=== PATIENT | male | born 1965 | race Caucasian/White ===

== ENCOUNTER 2017-09-01 20:22 | Emergency (ER) | payer OTHER ==
[~2017-09-01] VITALS: Ht 180.3 cm; Wt 64.4 kg
--- NOTE | 2017-09-01 20:22 | NUR ---
BIB SELF C/O SWELLING/ITCHING TO LLE FROM EXPOSURE TO POISON [place] X 2 WEEKS, NAD NOTED, VSS, RESP EVEN AND UNLABORED, PT PUT ON MONITOR, WAITING FOR MD JOHNSON.
[2017-09-01 21:04] VITALS: BP 129/80
== END 2017-09-01 22:19 | disposition home or self-care (01) ==
LOC: ER 20:26
DX: L23.7 Allergic contact dermatitis due to plants, except food (principal)
CPT/HCPCS: A4606; Z7610